=== PATIENT | male | born 1955 ===

== ENCOUNTER 2017-09-24 07:58 | Day surgery (SDC) | payer MEDICAID ==
[2017-09-24 08:50] VITALS: BMI 26.2
[2017-09-24] MEDS ORDERED: Lactated Ringer's 500 ML IV ONE (08:53)
[2017-09-24 11:02] VITALS: RESP 16; O2SAT 97
[2017-09-24 11:16] VITALS: BP 101/48; PULSE 46; TEMP 97
== END 2017-09-24 14:10 | disposition home or self-care (01) ==
LOC: H.ENDO 07:58
PROVIDERS: ATTEND Internal Medicine Gastroenterology
DX: R10.13 Epigastric pain (principal); K31.89 Other diseases of stomach and duodenum; E78.5 Hyperlipidemia, unspecified; I10 Essential (primary) hypertension
CPT/HCPCS: 43239; 88307; J7120